=== PATIENT | male | born 2000 | race Caucasian/White ===

== ENCOUNTER → 2025-01-16 | Outpatient (CLI) | payer BC ==
[2025-01-16 15:47] LABS: Source, Urine Voided
[2025-01-16 18:20] LABS: Appearance, Urine Clear (Clear); Bilirubin, Urine Neg (Neg); Blood, Urine Neg (Neg); Color, Urine Yellow (P-Yellow); Glucose Qualitative, Urine Neg (Neg); Ketones, Urine Neg (Neg); Leukocyte Esterase, Urine Neg (Neg); Nitrite, Urine Neg (Neg); Protein, Urine 3+ (Neg); Specific Gravity, Urine 1.015 (1.003-1.022); Urobilinogen, Urine NORM (Normal)
[2025-01-16 18:31] LABS: Bacteria Mod /hpf; Red Blood Cells, Urine 0-2 /hpf (0-2); Squamous Epithelial Cells Rare /hpf (Few); White Blood Cells, Urine 0-2 /hpf (0-5)
[2025-01-16 18:32] LABS: Amorphous Light (0-Heavy); Mucus Light (0-Heavy)
[2025-01-16 20:46] LABS: Protein, Urine Random 142.8 mg/dL (0.0-11.9)
[2025-01-16 20:51] LABS: Protein/Creat Ratio, Ur Random 1.1
== END ==
LOC: LAB 15:12 → LAB SHORT 15:12
PROVIDERS: Hospitalist
DX: N18.31 Chronic kidney disease, stage 3a (principal)
CPT/HCPCS: 81001; 82570; 84156; 87086